=== PATIENT | female | born 1990 | race Caucasian/White ===

== ENCOUNTER 2018-02-27 12:29 | Emergency (ER) | payer OTHER ==
[~2018-02-27] VITALS: Ht 162.6 cm; Wt 65.8 kg
[~2018-02-27 12:29] MED LIST: ALBU90OI INH; META800 PO; Mobic15 MG PO; NAPR550 PO; Norco 5-325 Ta1 EACH PO; RXNAPNA550 PO; Ventolin5 MG/1 ML
== END 2018-02-27 14:04 | disposition home or self-care (01) ==
LOC: ER 12:29
DX: R13.10 Dysphagia, unspecified (principal); J45.909 Unspecified asthma, uncomplicated; Z79.51 Long term (current) use of inhaled steroids; Z87.891 Personal history of nicotine dependence
CPT/HCPCS: 99283

== ENCOUNTER → 2018-11-09 | Outpatient (CLI) | payer OTHER | END | disposition home or self-care (01) | LOC: LAB SHORT 16:01 → LAB EV 16:01 | DX: N94.9 Unspecified condition associated with female genital organs and menstrual cycle (principal) | CPT/HCPCS: 87529 ==

== ENCOUNTER → 2019-01-27 | Outpatient (CLI) | payer OTHER ==
[2019-01-28 14:24] LABS: Candida species (DNA Probe) Positive (NEGATIVE); G. vaginalis (DNA Probe) Positive (NEGATIVE); T. vaginalis (DNA Probe) Negative (NEGATIVE)
[2019-01-29 07:07] LABS: CHLAMYDIA TRACHOMATIS, NAA Negative (Negative); NEISSERIA GONORRHOEAE, NAA Negative (Negative)
== END | disposition home or self-care (01) ==
LOC: LAB SHORT 10:25 → LAB EV 10:25
PROVIDERS: Physician Assistant
DX: N76.0 Acute vaginitis (principal); R82.79 Other abnormal findings on microbiological examination of urine
CPT/HCPCS: 87086; 87480; 87491; 87510; 87591; 87660

== ENCOUNTER → 2020-06-27 | Outpatient (CLI) | payer OTHER | END | disposition home or self-care (01) | LOC: LAB SHORT 16:00 → LAB 16:00 | PROVIDERS: Family Medicine | DX: Z01.419 Encounter for gynecological examination (general) (routine) without abnormal findings (principal) | CPT/HCPCS: G0145 ==